=== PATIENT | female | born 1935 | race Caucasian/White ===

== ENCOUNTER → 2017-06-27 | Outpatient (CLI) | payer MEDICARE ==
[~2017-06-27] MED LIST: ALE10 PO; ASPI-715 PO; BUDE0.5A7 IH; CALC200 PO; DENOSUMAB 60 MG/1 ML SYR SUBQ ONE; IPRA3AMP36 IH; LISI-368 PO; LUTE10TA3 PO; MULT-820 PO
[2017-06-27 09:34] VITALS: BP 128/57
== END ==
LOC: SPU 07:43
PROVIDERS: ATTEND Family Medicine
DX: M81.0 Age-related osteoporosis without current pathological fracture (principal)
CPT/HCPCS: 96372; J0897

== ENCOUNTER → 2017-07-02 | Outpatient (CLI) | payer MEDICARE ==
[~2017-07-02] MED LIST changes: -DENOSUMAB 60 MG/1 ML SYR SUBQ ONE
--- NOTE | 2017-07-02 10:31 | RADIOLOGY IMAGING REPORT ---
FACILITY: [facility] PATIENT NAME: Mayelin Moralez : 1935 MR: [id number] V: [id number] EXAM DATE: ORDERING PHYSICIAN: CHIVO QUIROZ TECHNOLOGIST: Location: [facility] [place] Patient: Mayelin Moralez : 1935 Visit/Account:[id number] Date of Sevice: 07/02/2017 DEXA Scan Clinical history: Osteopenia. Comparison: DEXA scan from 05/02/2015. LUMBAR SPINE: The bone mineral density (BMD) measured from L1-L4 correlates with a Z-score of 1.4 and a T-score of -0.9 which is Normal as defined by the World Health Organization. The corresponding risk of fracture in the lumbar spine is Not increased compared with a young adult reference population. This value h as increased by 8.9 % since the prior study. More than 5% change is considered significant. HIP: Bone mineral density (BMD) measured in the LEFT total hip region correlates with a Z-score 0.2 and a T-score of -2.1 which is osteopenia as defined by the World Health Organization. The corresponding r isk of fracture in the hip is 4-6 times increased compared to a young adult reference population. Thi s value has increased by 3.8 % since the prior study. More than 5% change is considered significant. T score left femoral neck -2.1 Bone mineral density (BMD) measured in the Femoral Neck region measures 0.742 g/cm?. IMPRESSION: 1. Lumbar spine: Normal. There has been 8.9% increase in the bone mineral density since the previou s exam. 2. Left Total Hip: Osteopenia. There has been 3.8% increase in the bone mineral density since the p revious exam. 3. Femoral Neck: Bone Mineral Density is 0.742 g/cm? The next DEXA scan of this patient should include the following sites: L1-L4 and the left hip. FRAX? WHO Fracture Risk Assessment Tool link: <http://www.shef.ac.uk/FRAX/tool.jsp?locationValue=9> PLEASE NOTE: 1) The World Health Organization defines low BMD as follows: T-score Normal > -1 Osteopenia < -1 and > -2.5 Osteoporosis < -2.5 without fractures Established osteoporosis < -2.5 with fractures 2) In general, you may wish to consider: Diagnosis Treatment Follow-up DEXA Normal BMD Prevention 2-3 years Osteopenia Prevention/therapy 1-2 years Osteoporosis Therapy Yearly 3) Fracture risk estimated from the T-score is more accurate for vertebral fractures (often spontane ous) than for hip fractures. Report Dictated By: Daria Osorio MD at 07/02/2017 9:22 AM Report E-Signed By: Daria Osorio MD at 07/02/2017 10:26 AM WSN:[email or web address]
== END ==
LOC: RAD 01:26
PROVIDERS: ATTEND Family Medicine
DX: Z13.820 Encounter for screening for osteoporosis (principal); M85.88 Other specified disorders of bone density and structure, other site
CPT/HCPCS: 77080

== ENCOUNTER → 2018-01-02 | Outpatient (CLI) | payer MEDICARE ==
[~2018-01-02] MED LIST changes: +DENOSUMAB 60 MG/1 ML SYR SUBQ ONE
[2018-01-02 08:20] VITALS: BP 139/92
== END ==
LOC: SPU 07:37
PROVIDERS: ATTEND Family Medicine
DX: M81.0 Age-related osteoporosis without current pathological fracture (principal)
CPT/HCPCS: 96372; J0897